=== PATIENT | female | born 1950 | race Caucasian/White ===

== ENCOUNTER 2018-10-17 02:31 | Inpatient (IN) ==
--- NOTE | 2018-10-11 10:39 | EKG Report ---
Test Performed on : 10/11/2018 10:33:53 AM Test Reason : pre surgery Blood Pressure : / mmHG Vent. Rate : 062 BPM Atrial Rate : 062 BPM P-R Int : 148 ms QRS Dur : 086 ms QT Int : 466 ms P-R-T Axes : 072 059 060 degrees QTc Int : 472 ms Normal sinus rhythm. Normal ECG When compared with ECG of 14-NOV-2017 08:45, No significant change was found Confirmed by Nick Guevara MD ([id number]) on 10/14/2018 8:44:46 PM
[2018-10-11 10:49] LABS: URINE SOURCE CLEAN CATCH
[2018-10-11 11:00] LABS: BILIRUBIN URINE NEGATIVE (NEGATIVE); BLOOD URINE NEGATIVE (NEGATIVE); COLOR YELLOW; GLUCOSE URINE NEGATIVE (NEGATIVE); KETONE URINE NEGATIVE (NEGATIVE); LEUKOCYTES URINE NEGATIVE (NEGATIVE); NITRITE URINE NEGATIVE (NEGATIVE); PROTEIN URINE NEGATIVE (NEGATIVE); SP GRAVITY URINE 1.021; TURBIDITY URINE CLEAR (CLEAR); UROBILINOGEN URINE NORMAL (NORMAL)
[2018-10-11 11:01] LABS: RBC 4.96 XMIL (4.2-5.4); WBC 7.98 X1000 (4.8-10.8)
[2018-10-11 11:02] LABS: BASO# 0.06 X1000 (0.0-0.2); BASO% 0.8 % (0.0-0.8); EOS% 1.3 % (0.0-10.0); HEMATOCRIT 43.4 % (37.0-47.0); LYMPH# 2.11 X1000 (1.2-3.4); LYMPH% 26.4 % (20.5-51.1); MCH 28.2 PG (27-31); MCHC 32.3 g/dL (33-37); MCV 87.5 FL (81-99); MONO# 0.51 X1000 (0.11-0.59); MONO% 6.4 % (1.7-9.3); MPV 10.7 FL (7.4-10.4); NEUT% 65.1 % (42.2-75.2); PLT 292 X1000 (130-400); RDW 13.1 % (11.5-14.5)
[2018-10-11 11:03] LABS: UR EPITHELIAL CELLS <10 /HPF (<10); URINE BACTERIA NEGATIVE /HPF; URINE RBC <10 /HPF (<10); URINE WBC <10 /HPF (<10)
[2018-10-11 11:04] LABS: INR 0.87; PROTIME 12.5 Seconds (11.0-16.0)
[2018-10-11 11:05] LABS: PTT 29.7 Seconds (22.3-41.8)
[2018-10-11 11:10] LABS: AGAP 11; BUN 20 mg/dL (8-22); CALCIUM 10.1 mg/dL (8.8-10.2); CHLORIDE 102 mmol/L (98-107); COSMO 284; CREATININE 0.9 mg/dL (0.5-0.9); ESTIMATED GFR > 60; GLUCOSE 92 mg/dL (70-104); POTASSIUM 4.7 mmol/L (3.5-5.1); SODIUM 141 mmol/L (136-145); TCO2 28 mmol/L (25-35)
[2018-10-17] MEDS ORDERED: COLACE ONE (09:42)
[2018-10-17] MEDS ORDERED: PEPCID ONE (09:42)
[2018-10-17] MEDS ORDERED: LYRICA ONE (09:42)
[2018-10-17] MEDS ORDERED: REGLAN ONE (09:42)
[2018-10-17] MEDS ORDERED: LR 1,000 ML ONE (09:42)
[2018-10-17] MEDS ORDERED: VANCOMYCIN 1 GM/NS 1 GM/250 ML IVPB IV ONE ×2 (10:00→23:00)
[2018-10-17] MEDS ORDERED: DIPRIVAN 1% ONE (10:12)
[2018-10-17] MEDS ORDERED: ROBINUL ONE ×2 (10:12→11:46)
[2018-10-17] MEDS ORDERED: XYLOCAINE-MPF 2% ONE (10:12)
[2018-10-17] MEDS ORDERED: VERSED ONE (10:55)
[2018-10-17] MEDS ORDERED: FENTANYL ONE (10:58)
[2018-10-17] MEDS ORDERED: TORADOL ONE ×2 (11:02→11:52)
[2018-10-17] MEDS ORDERED: MARCAINE 0.25% PF ONE (11:02)
[2018-10-17] MEDS ORDERED: SODIUM CHLORIDE 0.9% ONE (11:02)
[2018-10-17] MEDS ORDERED: EXPAREL 1.3% ONE (11:02)
[2018-10-17] MEDS ORDERED: DURAMORPH ONE (11:02)
[2018-10-17] MEDS ORDERED: CYKLOKAPRON 1,000 MG/NS 1,000 MG/100 ML IVPB ONE ×2 (11:02→11:39)
[2018-10-17] MEDS ORDERED: NEOSPORIN G.U. IRRIGANT ONE (11:05)
[2018-10-17] MEDS ORDERED: VANCOMYCIN ONE (11:39)
[2018-10-17] MEDS ORDERED: ZEMURON ONE (11:51)
[2018-10-17] MEDS ORDERED: EPHEDRINE ONE (11:52)
[2018-10-17] MEDS ORDERED: OFIRMEV 1000 MG/ISOTONIC SOLN 1,000 MG/100 ML BOTTLE ONE (11:52)
[2018-10-17] MEDS ORDERED: DECADRON ONE (11:52)
[2018-10-17] MEDS ORDERED: ZOFRAN ONE (11:52)
[2018-10-17 12:41] LABS: URINE SOURCE CATH
[2018-10-17 12:48] LABS: BILIRUBIN URINE NEGATIVE (NEGATIVE); BLOOD URINE NEGATIVE (NEGATIVE); COLOR STRAW; GLUCOSE URINE NEGATIVE (NEGATIVE); KETONE URINE NEGATIVE (NEGATIVE); LEUKOCYTES URINE NEGATIVE (NEGATIVE); NITRITE URINE NEGATIVE (NEGATIVE); PROTEIN URINE NEGATIVE (NEGATIVE); SP GRAVITY URINE 1.005; TURBIDITY URINE CLEAR (CLEAR); UR EPITHELIAL CELLS <10 /HPF (<10); URINE BACTERIA NEGATIVE /HPF; URINE RBC <10 /HPF (<10); URINE WBC <10 /HPF (<10); UROBILINOGEN URINE NORMAL (NORMAL)
[2018-10-17] MEDS ORDERED: NS 1,000 ML ONE (14:06)
[2018-10-17] MEDS: DILAUDID ONE ×2 (14:24→14:30)
--- NOTE | 2018-10-17 14:30 | Diag Imaging Result Doc PS360 ---
KNEE 3 VIEWS-LEFT - 10/17/2018 INDICATION: post op TECHNIQUE: COMPARISON: 07/05/2018 FINDINGS: There has been revision, with placement of a long stemmed, hinged knee prosthesis. Alignment is anatomic. No hardware fracture or loosening. IMPRESSION: No complication. Electronically signed by Jacky Wilder 10/17/2018 2:27 PM
[2018-10-17] MEDS ORDERED: OXY IR ONE (14:39)
--- NOTE | 2018-10-17 15:03 | OPERATIVE NOTE ---
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 PROCEDURE PERFORMED: Revision left total knee replacement. SURGEON: Art Garcia M.D. WEED CONTROL INSPECTOR: ANA CRISTINA Alves. Mr. Pantoja was necessary for proper retraction and manipulation of the leg during the surgery. ANESTHESIA: General. COMPLICATION: None. PROCEDURE IN DETAIL: This 68-year-old female presents for a revision left total knee. Risks, benefits, and no guarantees were discussed and she is willing to proceed. She was taken to the operating room and satisfactory anesthesia obtained. The left knee was prepped and draped in usual sterile fashion. A time-out was taken to confirm operative site, procedure, and patient. The leg was wrapped with an Esmarch and tourniquet inflated to 350 mmHg. The previous midline incision over the front of the knee was extended 2 cm in each direction. Dissection carried down through the skin and subcutaneous fat. A medial arthrotomy was made in the knee and the patella everted and subluxed laterally. The patella was noted to be fully intact without any fibrous tissue. The knee joint was with relatively normal fluid without any evidence of inflammation or infection to suggest sepsis. The knee was flexed and dissection around the tibial tray and femoral implant undertaken with care taken to preserve collateral ligaments. Using a Gigli saw and osteotomes, the femoral implant was loosened and extracted with minimal bone loss. A similar technique with a saw and osteotomes was used to resect and remove the tibial tray. The ends of both femur and tibia were debrided of any remaining cement. Both intramedullary canals were reamed up to a 14 mm reamer. A standard stem by 14 mm diameter implant was chosen for the stems on each side. The tibial sleeve was broached up to appropriate-size tibial sleeve as well as a metaphyseal sleeve for the femur. TC3 size 3 femoral implant was selected with appropriate distal augments. The finishing block for the femur was attached and the chamfer cuts or anterior posterior cups were revised to accommodate the femur. A size 3 tibia was selected as well. Trial implants were built for both the tibial stemmed prosthesis and the femoral stem prosthesis and a 17.5 mm spacer block utilized with good range of motion and mormonism of collateral ligament tension and patellofemoral mechanics. Trial implant was removed and the permanent implants assembled on the back table with the appropriate stem, sleeves, and augments. The bony surfaces were thoroughly irrigated with pulsatile lavage. Cement with a gram of vancomycin was then utilized to cement the TC3 stemmed tibial tray followed by the stemmed femoral implant into the knee and a 17 mm spacer used to compress this while the cement hardened. Excess cement was removed with a Gay elevator. After curing the cement, a 17.5 posterior stabilized polyethylene bearing was placed into the knee on the tibial tray and the knee reduced. Final range of motion was 0 to 130 degrees with midline patellar tracking. A Hemovac drain was placed. The arthrotomy copiously irrigated with irrigant. It was then closed over the drain with #1 Vicryl in the arthrotomy, 2-0 Vicryl in the subcutaneous, and skin maryana on the skin edges. Sterile dressings completed the closure. The patient was recovered from anesthesia and transferred to the recovery room in stable condition. No intraoperative complications were noted. Instrument count and sponge count were correct at the time of closure. cc: Clay Garcia MD
[2018-10-17] MEDS ORDERED: MORPHINE IV PRN ×2 (15:45)
[2018-10-17] MEDS ORDERED: ZOFRAN ODT PO PRN (15:45)
[2018-10-17] MEDS ORDERED: OXY IR PO PRN (15:45)
[2018-10-17] MEDS ORDERED: CYANOCOBALAMIN IM SCH (16:00)
[2018-10-17] MEDS: ULTRAM PO SCH (16:12)
[2018-10-17] MEDS: NS 1,000 ML IV SCH (16:14)
[2018-10-17] MEDS: TYLENOL PO SCH (18:12)
[2018-10-17] MEDS: OXY IR PO PRN (18:40)
--- NOTE | 2018-10-17 18:53 | ORTHOPAEDICS PROGRESS NOTE ---
DATE: 10/17/2018 SUBJECTIVE: Ms. Agosto is seen status post revision total knee replacement. Presently, she is stable. She has minimal discomfort. OBJECTIVE: There are no signs of active bleeding, and the bandage is clean and dry. She appears to have intact motor sensory function with good flexion and extension of the toes and foot. ASSESSMENT/PLAN: We will plan on mobilizing her later today or tomorrow. She can be discharged home when she is mobilizing well with therapy. cc: Clay Garcia MD
[2018-10-17] MEDS: PERIDEX MT SCH (20:08)
[2018-10-17] MEDS: CELEBREX PO SCH (20:08)
[2018-10-17] MEDS: MORPHINE IV PRN ×2 (20:08→23:41)
[2018-10-17] MEDS: COLACE PO SCH (20:09)
[2018-10-17] MEDS: VITAMIN D PO SCH (20:11)
[2018-10-17] MEDS ORDERED: AMBIEN PO SCH (21:00)
[2018-10-17] MEDS ORDERED: CYMBALTA PO SCH (21:00)
[2018-10-17] MEDS ORDERED: MIRAPEX PO SCH (21:00)
[2018-10-17] MEDS ORDERED: PRINIVIL PO SCH (21:00)
[2018-10-17] MEDS: ZOFRAN IV PRN (23:41)
[2018-10-17] MEDS: PATIENT'S OWN MED PO SCH (23:43)
[2018-10-18] MEDS: OXY IR PO PRN ×3 (02:19→14:19)
[2018-10-18] MEDS: MORPHINE IV PRN (04:42)
[2018-10-18] MEDS: NS 1,000 ML IV SCH (04:43)
[2018-10-18] MEDS: ZOFRAN IV PRN ×2 (06:00→08:32)
[2018-10-18] MEDS: TYLENOL PO SCH ×3 (06:01→11:32)
[2018-10-18 06:31] LABS: HEMATOCRIT 38.1 % (37.0-47.0); HEMOGLOBIN 12.2 g/dL (12.0-16.0)
[2018-10-18 06:48] LABS: AGAP 9; BUN 16 mg/dL (8-22); CALCIUM 9.1 mg/dL (8.8-10.2); CHLORIDE 103 mmol/L (98-107); COSMO 279; CREATININE 0.9 mg/dL (0.5-0.9); ESTIMATED GFR > 60; GLUCOSE 128 mg/dL (70-104); POTASSIUM 5.4 mmol/L (3.5-5.1); SODIUM 138 mmol/L (136-145); TCO2 26 mmol/L (25-35)
[2018-10-18] MEDS ORDERED: PRILOSEC PO SCH (07:00)
[2018-10-18] MEDS ORDERED: SYNTHROID PO SCH (07:00)
[2018-10-18 07:30] VITALS: BP 122/53
[2018-10-18] MEDS: ULTRAM PO SCH (08:16)
[2018-10-18] MEDS ORDERED: ULTRAM PO PRN (08:16)
--- NOTE | 2018-10-18 08:17 | ORTHOPAEDICS PROGRESS NOTE ---
DATE: 10/18/2018 SUBJECTIVE: Ms. Agosto is seen status post revision total knee replacement. She is afebrile with stable vital signs. Her bandage is clean and dry. She is motor and sensory intact. There are no signs of active bleeding or infection. There are no signs of DVT. PLAN: We will discontinue the lines today. She can be discharged home later today on a walker for outpatient management. We have asked her to resume her regular medicines and placed her on aspirin daily 325 mg for DVT prophylaxis, Percocet as needed for pain, and doxycycline just for prophylaxis. We will see her back in roughly 10 days for follow-up, or sooner for any worsening signs or symptoms. cc: Clay Garcia MD
[2018-10-18] MEDS: CELEBREX PO SCH (08:34)
[2018-10-18] MEDS: COLACE PO SCH (08:34)
[2018-10-18] MEDS: VITAMIN D PO SCH (08:34)
[2018-10-18] MEDS: PERIDEX MT SCH (08:34)
[2018-10-18] MEDS ORDERED: PEPCID PO SCH (09:00)
[2018-10-18] MEDS ORDERED: ASPIRIN PO SCH (09:00)
[2018-10-18] MEDS ORDERED: MAGNESIUM GLUCONATE PO SCH (09:00)
[2018-10-18] MEDS ORDERED: BENADRYL IV ONE (09:41)
[2018-10-18] MEDS: PATIENT'S OWN MED PO SCH (11:31)
== END 2018-10-18 16:16 | disposition home health service (06) | DRG 468 ==
LOC: SURHOLD 02:31 → 4N 11:21
PROVIDERS: ADMIT Orthopaedic Surgery Adult Reconstructive Orthopaedic Surgery; ATTEND Orthopaedic Surgery Adult Reconstructive Orthopaedic Surgery
CPT/HCPCS: 73560; 80048; 81001; 85014; 85018; 85025; 85610; 85730; 86850; 86900; 86901; 94761; 94799; 97110; 97116; 97162; 97530; A9270; C9290; J0131; J1100; J1170; J1200; J1885; J2250; J2270; J2274; J2275; J2405; J3010; J3370; J3420; J7030; J7120; Q9974; S0020